=== PATIENT | female | born 1955 | race Caucasian/White ===

== ENCOUNTER 2016-10-18 14:12 | Emergency (ER) | payer BC ==
[~2016-10-18] VITALS: Ht 157.5 cm; Wt 90.0 kg
[2016-10-18 14:15] VITALS: BP 157/74; PULSE 70; RESP 15; TEMP 98.4; O2SAT 99
--- NOTE | 2016-10-18 14:33 | PD ---
HPI . left leg pain x 1 day Chief Complaint: Injury Time Seen by Provider: 14:32 Travel History International Travel<30 days: No Contact w/Intl Traveler<30days: No Traveled to known affect area: No History of Present Illness HPI 61-year-old female with hyperlipidemia here with complaints of left leg pain when walking. Patient tells me that [place] and all of a sudden developed left leg pain. She tried some [id number] formulation a muscle cramp from [employer], without much relief. Patient rates the pain as 0/10 at rest. With ambulation it intensifies. Patient does admit to traveling recently from [place]. She denies any chest pain or shortness breath. She has no other complaints. PFSH Past Medical History High Cholesterol: Yes Social History Alcohol Use: No Tobacco Use: No Substance Use: No Allergies-Medications (Allergen,Severity, Reaction): Coded Allergies: No Known Allergies (Verified Allergy, Unknown, 10/18/16) Reported Meds & Prescriptions Reported Meds & Active Scripts Active Flexeril (Cyclobenzaprine HCl) 5 Mg Tab 5 Mg PO TID Reported Calcium 500 +D (Calcium Carbonate-Cholecalciferol) 500-400 Mg-Unit Tab 1 Tab PO BID Vitamin D-1000 (Cholecalciferol) 1,000 Unit Tab 1,000 Units PO DAILY [cholesterol meds] Review of Systems General / Constitutional: No: Fever Eyes: No: Visual changes HENT: No: Headaches Cardiovascular: No: Chest Pain or Discomfort Respiratory: No: Shortness of Breath Gastrointestinal: No: Abdominal Pain Genitourinary: No: Dysuria Musculoskeletal: Positive: Pain (left leg) Skin: No Rash Neurologic: No: Weakness Psychiatric: No: Depression Endocrine: No: Polydipsia Hematologic/Lymphatic: No: Easy Bruising Physical Exam Narrative GENERAL: AAO x 3, no acute distress, Well-nourished, well-developed patient. SKIN: Warm and dry. No visible rashes or bruising. HEAD: Normocephalic and atraumatic. EYES: No scleral icterus. No injection or drainage. ENT: No nasal drainage noted. Mucous membranes pink. Airway patent. NECK: Supple, trachea midline. No JVD. CARDIOVASCULAR: Regular rate and rhythm without murmurs, gallops, or rubs. RESPIRATORY: Breath sounds equal bilaterally. No accessory muscle use. No rhonchi or rales. GASTROINTESTINAL: Abdomen soft, non-tender, nondistended. EXTREMITIES: No cyanosis or edema. left leg non tender to touch. no obvious deformity. pedal pulses normal BACK: No obvious deformity. No CVA tenderness. NEURO: CN II-12 intact, net mobile developer strength normal b/l, UE and LE 5/5, no focal deficits PSYCH: AAO x 3, normal affect. Data Data Last Documented VS Vital Signs Date Time Temp Pulse Resp B/P (MAP) Pulse Ox O2 Delivery O2 Flow Rate FiO2 10/18/16 14:37 18 10/18/16 14:15 98.4 70 157/74 (101) 99 Orders Orders Us Leg Venous Doppler (10/18/16 14:41) [facility] Medical Decision Making Medical Screen Exam Complete: Yes Emergency Medical Condition: Yes Medical Record Reviewed: Yes Differential Diagnosis muscle strain, OA, DVT Narrative Course 61 yr old female here with c/o left leg pain. Venous doppler ordered to R/O DVT with recent travel. NO DVT per [place] reports. Discussed negative results with patient. Recommend muscle relaxer to see if this helps with her symptoms. Also recommend some ibuprofen [id number]. I offered patient Crutches and she declined. Patient verbalized understanding of instructions, questions were answered, and thanked me for their care. I advised them if their condition worsens, please return to the nearest emergency room for further care. Diagnosis Primary Impression: Left leg pain Patient Instructions: General Instructions Additional Instructions: Muscle relaxers can cause drowsiness. Do not drive, swim or operate heavy machinery while using these medications. Please return to emergency department if your symptoms return or worsen. Follow up with your primary care provider. Take medications as prescribed. Rest the affected area as much as possible. Ice this area for 15-20 minutes at a time. You can do this every hour or as much as tolerated. Use ibuprofen as needed for pain and inflammation. Med/Other Pt SpecificInfo: Prescription(s) given Scripts Cyclobenzaprine (Flexeril) 5 Mg Tab 5 MG PO TID for Muscle Spasm, #21 TAB 0 Refills Prov: Tavon White MD 10/18/16 Disposition: 01 DISCHARGE HOME Condition: Stable [place] Aldana Oct 18, 2016 14:33
[2016-10-18] MEDS ORDERED: VITA1000 PO (14:39)
[2016-10-18] MEDS ORDERED: cholesterol meds (14:39)
[2016-10-18] MEDS ORDERED: CALC1TAB12 PO (14:39)
--- NOTE | 2016-10-18 15:21 | RADRPT ---
EXAM DATE/TIME: 10/18/2016 14:42 [facility] COMPARISON: No previous studies available for comparison. INDICATIONS : Left leg swelling. MEDICAL HISTORY : None. SURGICAL HISTORY : None. ENCOUNTER: Initial ACUITY: 1 day PAIN SCORE: 2/10 LOCATION: Left leg. TECHNIQUE: Venous ultrasound of the leg was performed from the inguinal ligament to the proximal calf. Real-nelda e, color Doppler and spectral tracing, compression and augmentation techniques were used. FINDINGS: There is normal compressibility of the deep venous system from the inguinal region to the proximal ca lf. No echogenic clot is seen in the lumen of the common femoral, femoral, popliteal, and posterior tibial veins. There is a normal response of the venous system to proximal and distal augmentation an d respiration. CONCLUSION: Negative for deep venous thrombosis. Andrés Wiley MD FACR on October 18, 2016 at 15:18 Board Certified Radiologist. This report was verified electronically.
[2016-10-18] MEDS ORDERED: CYCL5TAB PO (15:24)
== END 2016-10-18 15:50 | disposition home or self-care (01) ==
LOC: NEPD 14:12
DX: M79.605 Pain in left leg (principal)
CPT/HCPCS: 93971; 99284